=== PATIENT | male | born 1960 | race Caucasian/White ===

== ENCOUNTER → 2017-09-04 | Outpatient (CLI) | payer BC ==
[~2017-09-04] MED LIST: FLOMAX0.4 MG PO; METHADONE HCL40 MG PO; NORCO 5/3251 TABLET PO; OXAYDO5 MG PO
== END | disposition home or self-care (01) ==
LOC: RAD 09:36
DX: J44.9 Chronic obstructive pulmonary disease, unspecified (principal)
CPT/HCPCS: 71046